=== PATIENT | male | born 1975 | race Hispanic/Latino ===

== ENCOUNTER 2021-11-01 02:03 | Inpatient (IN) | payer OTHER ==
[~2021-11-01] VITALS: Ht 162.6 cm; Wt 100.5 kg
[2021-11-01] MEDS ORDERED: KETOROLAC 30MG VIAL (30MG/ML) IVP ONE (04:00)
[2021-11-01 04:22] LABS: BASOPHILS % (AUTO) 0.2 % (0.0-5.0); HEMATOCRIT 44.6 % (42-54); LYMPHOCYTES % (AUTO) 7.7 % (21.0-51.0); MEAN CORPUSCULAR HEMOGLOBIN 30.8 pg (27.0-33.0); MEAN CORPUSCULAR HGB CONC 34.3 g/dL (32.0-36.0); MEAN CORPUSCULAR VOLUME 89.7 fL (79-99); MONOCYTES % (AUTO) 6.4 % (3.0-13.0); NEUTROPHILS % (AUTO) 85.2 % (40.0-77.0); PLATELET COUNT (AUTO) 252 K/uL (130-400); RED BLOOD CELL COUNT(AUTO) 4.97 MIL/uL (4.50-6.20); RED CELL DISTRIBUTION WIDTH 12.3 % (11.0-15.5); WHITE BLOOD COUNT (AUTO) 15.4 K/uL (4.8-10.8)
[2021-11-01 04:23] LABS: APPEARANCE,URINE CLEAR (CLEAR); BILIRUBIN,URINE SMALL (NEGATIVE); COLOR,URINE YELLOW (YELLOW); GLUCOSE, URINE (UA) NEGATIVE (NEGATIVE); KETONES,URINE >=80 mg/dL (NEGATIVE); LEUKOCYTE ESTERASE ,URINE NEGATIVE (NEGATIVE); NITRATE,URINE NEGATIVE (NEGATIVE); OCCULT BLOOD,URINE MODERATE (NEGATIVE); PH,URINE 5.5 (5.0-8.0); PROTEIN,URINE TRACE mg/dL (NEGATIVE)
[2021-11-01 04:34] LABS: POTASSIUM 3.7 mmol/L (3.5-5.1)
[2021-11-01 04:38] LABS: ALBUMIN 3.7 g/dL (3.5-5.0); TOTAL PROTEIN, SERUM 8.6 g/dL (6.0-8.3)
[2021-11-01 05:14] LABS: BACTERIA,URINE None Seen /HPF (None Seen); MUCUS,URINE Moderate LPF (None Seen); RBC,URINE None Seen /HPF (0-1); SQUAMOUS EPITHELIAL CELL,UR Few /HPF (0-2); WBC,URINE None Seen /HPF (0-1)
[2021-11-01] MEDS ORDERED: MORPHINE 4 MG SYG IVP ONE (06:00)
[2021-11-01] MEDS ORDERED: VANCOMYCIN KIT 1 GM/250 ML IV.KIT IV ONE (06:00)
[2021-11-01] MEDS ORDERED: ZOSYN 3.375GM +NS 50ML IV ONE (06:30)
[2021-11-01] MEDS ORDERED: ACETAMINOPHEN 325 MG TAB ONE (07:31)
[2021-11-01] MEDS: VANCOMYCIN 1.25 GM/250 ML BAG 250 ML IV SCH ×2 (07:57→20:56)
[2021-11-01] MEDS ORDERED: VANCOMYCIN PROTOCOL PER PHARMACY IV SCH (08:00)
[2021-11-01] MEDS ORDERED: ACETAMINOPHEN 325 MG TAB PO ONE (08:00)
[2021-11-01] MEDS ORDERED: 0.9%NACL 1000ML 1,000 ML IV ONE (08:00)
[2021-11-01 08:22] LABS: AMPHET/METH SCREEN,URINE NEGATIVE (NEGATIVE); BARBITURATE SCREEN, URINE NEGATIVE (NEGATIVE); BENZODIAZEPINES SCREEN,URINE NEGATIVE (NEGATIVE); CANNABINOID SCREEN,URINE NEGATIVE (NEGATIVE); COCAINE SCREEN,URINE NEGATIVE (NEGATIVE); PHENCYCLIDINE SCREEN,URINE NEGATIVE (NEGATIVE)
[2021-11-01 08:25] LABS: HEMOGLOBIN A1C 5.6 % (4.0-6.0)
[2021-11-01 10:00] VITALS: BP 110/51
[2021-11-01] MEDS: ZOSYN 3.375GM +NS 50ML IV SCH ×2 (14:01→23:14)
[2021-11-01 16:00] VITALS: BP 130/72
[2021-11-01 20:00] VITALS: BP 115/59
[2021-11-01] MEDS: KETOROLAC 15MG/ML VIAL (15MG/ML) IV PRN (21:01)
[2021-11-02] VITALS: BP 115/54
[2021-11-02 04:00] VITALS: BP 107/55
[2021-11-02 05:44] LABS: BASOPHILS % (AUTO) 0.2 % (0.0-5.0); EOSINOPHILS % (AUTO) 0.5 % (0.0-8.0); HEMATOCRIT 39.3 % (42-54); LYMPHOCYTES % (AUTO) 10.5 % (21.0-51.0); MEAN CORPUSCULAR HEMOGLOBIN 30.9 pg (27.0-33.0); MEAN CORPUSCULAR HGB CONC 33.6 g/dL (32.0-36.0); MONOCYTES % (AUTO) 8.5 % (3.0-13.0); NEUTROPHILS % (AUTO) 79.6 % (40.0-77.0); PLATELET COUNT (AUTO) 240 K/uL (130-400); RED BLOOD CELL COUNT(AUTO) 4.27 MIL/uL (4.50-6.20); RED CELL DISTRIBUTION WIDTH 12.7 % (11.0-15.5)
[2021-11-02 05:54] LABS: POTASSIUM 3.8 mmol/L (3.5-5.1)
[2021-11-02] MEDS: ZOSYN 3.375GM +NS 50ML IV SCH ×2 (06:48→13:46)
[2021-11-02 08:00] VITALS: BP 124/79
[2021-11-02] MEDS: VANCOMYCIN 1.25 GM/250 ML BAG 250 ML IV SCH ×2 (09:10→22:16)
[2021-11-02] MEDS: KETOROLAC 15MG/ML VIAL (15MG/ML) IV PRN ×2 (09:23→22:26)
[2021-11-02 12:00] VITALS: BP 116/69
[2021-11-02 16:00] VITALS: BP 110/55
[2021-11-02 20:00] VITALS: BP 119/58
[2021-11-03] VITALS: BP 116/60
[2021-11-03] MEDS: ZOSYN 3.375GM +NS 50ML IV SCH ×4 (00:06→20:53)
[2021-11-03 04:00] VITALS: BP 123/67
[2021-11-03 07:58] LABS: HEMATOCRIT 37.1 % (42-54); MEAN CORPUSCULAR HEMOGLOBIN 30.5 pg (27.0-33.0); MEAN CORPUSCULAR HGB CONC 33.4 g/dL (32.0-36.0); MEAN CORPUSCULAR VOLUME 91.4 fL (79-99); RED BLOOD CELL COUNT(AUTO) 4.06 MIL/uL (4.50-6.20); RED CELL DISTRIBUTION WIDTH 12.7 % (11.0-15.5); WHITE BLOOD COUNT (AUTO) 11.4 K/uL (4.8-10.8)
[2021-11-03 08:00] VITALS: BP 130/83
[2021-11-03 08:07] LABS: POTASSIUM 3.5 mmol/L (3.5-5.1)
[2021-11-03] MEDS ORDERED: VANCOMYCIN 2GM/500 ML BAG 500 ML IV SCH (08:30)
[2021-11-03 12:07] VITALS: BP 102/61
[2021-11-03 16:00] VITALS: BP 125/74
[2021-11-03 19:00] VITALS: BP 126/60
[2021-11-03] MEDS: KETOROLAC 15MG/ML VIAL (15MG/ML) IV PRN (20:53)
[2021-11-03] MEDS ORDERED: VANCOMYCIN 1.5 GM/250 ML BAG 250 ML IV SCH (21:00)
[2021-11-04] VITALS: BP 125/66
[2021-11-04 04:00] VITALS: BP 119/70
[2021-11-04 05:01] LABS: BASOPHILS % (AUTO) 0.3 % (0.0-5.0); HEMATOCRIT 39.2 % (42-54); LYMPHOCYTES % (AUTO) 17.8 % (21.0-51.0); MEAN CORPUSCULAR HEMOGLOBIN 30.3 pg (27.0-33.0); MEAN CORPUSCULAR HGB CONC 33.2 g/dL (32.0-36.0); MEAN CORPUSCULAR VOLUME 91.4 fL (79-99); NEUTROPHILS % (AUTO) 67.1 % (40.0-77.0); PLATELET COUNT (AUTO) 271 K/uL (130-400); RED BLOOD CELL COUNT(AUTO) 4.29 MIL/uL (4.50-6.20); RED CELL DISTRIBUTION WIDTH 12.6 % (11.0-15.5); WHITE BLOOD COUNT (AUTO) 11.6 K/uL (4.8-10.8)
[2021-11-04] MEDS: ZOSYN 3.375GM +NS 50ML IV SCH ×3 (05:03→21:53)
[2021-11-04 05:16] LABS: CREATININE 1.2 mg/dL (0.5-1.5); POTASSIUM 3.4 mmol/L (3.5-5.1)
[2021-11-04 08:02] VITALS: BP 114/60
[2021-11-04] MEDS ORDERED: VANCOMYCIN 1.5 GM/250 ML BAG 250 ML IV SCH (09:47)
[2021-11-04 11:06] VITALS: BP 118/59
[2021-11-04 16:47] VITALS: BP 118/56
[2021-11-04 19:00] VITALS: BP 119/68
[2021-11-04] MEDS: VANCOMYCIN 1.25 GM/250 ML BAG 250 ML IV SCH (19:49)
[2021-11-05] VITALS: BP 116/73
[2021-11-05 04:00] VITALS: BP 115/67
[2021-11-05 04:33] LABS: BASOPHILS % (AUTO) 0.4 % (0.0-5.0); EOSINOPHILS % (AUTO) 2.2 % (0.0-8.0); HEMATOCRIT 38.6 % (42-54); LYMPHOCYTES % (AUTO) 16.9 % (21.0-51.0); MEAN CORPUSCULAR HEMOGLOBIN 30.2 pg (27.0-33.0); MEAN CORPUSCULAR HGB CONC 33.2 g/dL (32.0-36.0); MONOCYTES % (AUTO) 10.3 % (3.0-13.0); NEUTROPHILS % (AUTO) 69.2 % (40.0-77.0); PLATELET COUNT (AUTO) 265 K/uL (130-400); RED BLOOD CELL COUNT(AUTO) 4.24 MIL/uL (4.50-6.20); RED CELL DISTRIBUTION WIDTH 12.8 % (11.0-15.5); WHITE BLOOD COUNT (AUTO) 10.4 K/uL (4.8-10.8)
[2021-11-05 04:48] LABS: CREATININE 2.2 mg/dL (0.5-1.5); POTASSIUM 3.8 mmol/L (3.5-5.1)
[2021-11-05] MEDS: ZOSYN 3.375GM +NS 50ML IV SCH (05:11)
[2021-11-05 08:00] VITALS: BP 113/89
[2021-11-05] MEDS ORDERED: HYDROCODONE/ACETAMINOPHEN 5/325 MG TAB PO PRN (09:00)
[2021-11-05] MEDS: VANCOMYCIN 1.25 GM/250 ML BAG 250 ML IV SCH (10:01)
[2021-11-05] MEDS: LACTATED RINGERS 1000ML IV SCH (10:01)
[2021-11-05 11:56] VITALS: BP 119/74
[2021-11-05] MEDS ORDERED: ZYVOX 600 MG TAB PO SCH (13:30)
[2021-11-05 16:00] VITALS: BP 130/75
[2021-11-05 19:00] VITALS: BP 135/72
[2021-11-05] MEDS: ZYVOX 600 MG TAB PO SCH (19:38)
[2021-11-05] MEDS ORDERED: DIPHENHYDRAMINE HCL 25 MG CAPSULE PO ONE (20:00)
[2021-11-06] VITALS: BP 125/62
[2021-11-06] MEDS ORDERED: LIDOCAINE HCL-MPF 1% 2ML VIAL IV STA (02:03)
[2021-11-06 04:00] VITALS: BP 140/75
[2021-11-06 04:53] LABS: BASOPHILS % (AUTO) 0.5 % (0.0-5.0); EOSINOPHILS % (AUTO) 2.1 % (0.0-8.0); HEMATOCRIT 39.1 % (42-54); LYMPHOCYTES % (AUTO) 16.8 % (21.0-51.0); MEAN CORPUSCULAR HGB CONC 33.5 g/dL (32.0-36.0); MEAN CORPUSCULAR VOLUME 92.4 fL (79-99); MONOCYTES % (AUTO) 9.8 % (3.0-13.0); NEUTROPHILS % (AUTO) 69.7 % (40.0-77.0); PLATELET COUNT (AUTO) 271 K/uL (130-400); RED BLOOD CELL COUNT(AUTO) 4.23 MIL/uL (4.50-6.20); RED CELL DISTRIBUTION WIDTH 12.8 % (11.0-15.5); WHITE BLOOD COUNT (AUTO) 10.3 K/uL (4.8-10.8)
[2021-11-06 05:16] LABS: CREATININE 2.5 mg/dL (0.5-1.5); POTASSIUM 3.7 mmol/L (3.5-5.1)
[2021-11-06 08:00] VITALS: BP 135/78
[2021-11-06] MEDS ORDERED: LIDOCAINE HCL MPF 1% 5ML VIAL ONE (09:15)
[2021-11-06] MEDS: LACTATED RINGERS 1000ML IV SCH (09:30)
[2021-11-06] MEDS: LACTATED RINGERS 1000ML 1,000 ML IV SCH ×3 (09:32→19:34)
[2021-11-06] MEDS: ZYVOX 600 MG TAB PO SCH ×2 (09:32→19:32)
[2021-11-06] MEDS ORDERED: ACET-2079 PO (09:47)
[2021-11-06 12:00] VITALS: BP 149/87
[2021-11-06 13:11] LABS: CREATININE 2.4 mg/dL (0.5-1.5); POTASSIUM 3.7 mmol/L (3.5-5.1)
[2021-11-06 16:00] VITALS: BP 128/75
[2021-11-06 19:00] VITALS: BP 129/74
[2021-11-07] VITALS: BP 126/65
[2021-11-07] MEDS: LACTATED RINGERS 1000ML 1,000 ML IV SCH (02:32)
[2021-11-07 04:00] VITALS: BP 126/67
[2021-11-07 05:31] LABS: BASOPHILS % (AUTO) 0.5 % (0.0-5.0); EOSINOPHILS % (AUTO) 2.3 % (0.0-8.0); HEMATOCRIT 38.7 % (42-54); MEAN CORPUSCULAR HEMOGLOBIN 30.2 pg (27.0-33.0); MEAN CORPUSCULAR HGB CONC 33.3 g/dL (32.0-36.0); MEAN CORPUSCULAR VOLUME 90.6 fL (79-99); MONOCYTES % (AUTO) 9.5 % (3.0-13.0); NEUTROPHILS % (AUTO) 70.8 % (40.0-77.0); PLATELET COUNT (AUTO) 291 K/uL (130-400); RED BLOOD CELL COUNT(AUTO) 4.27 MIL/uL (4.50-6.20); RED CELL DISTRIBUTION WIDTH 12.6 % (11.0-15.5); WHITE BLOOD COUNT (AUTO) 10.5 K/uL (4.8-10.8)
[2021-11-07 05:40] LABS: CREATININE 2.2 mg/dL (0.5-1.5)
[2021-11-07 08:00] VITALS: BP 148/63
[2021-11-07] MEDS: LACTATED RINGERS 1000ML IV SCH (09:30)
[2021-11-07] MEDS: ZYVOX 600 MG TAB PO SCH (09:52)
[2021-11-07] MEDS ORDERED: CLIN-116 PO (10:25)
[2021-11-07 11:51] VITALS: BP 106/62
[2021-11-07 16:00] VITALS: BP 153/99
== END 2021-11-07 17:20 | disposition home or self-care (01) | DRG 872 ==
LOC: EDH 02:03 → EDHIP 02:04 → 4BH 09:40
PROVIDERS: ADMIT Internal Medicine; ATTEND Internal Medicine
DX: A41.9 Sepsis, unspecified organism (principal); N17.9 Acute kidney failure, unspecified; N49.2 Inflammatory disorders of scrotum; E66.01 Morbid (severe) obesity due to excess calories; Z68.38 Body mass index [BMI] 38.0-38.9, adult; F32.A Depression, unspecified; F41.9 Anxiety disorder, unspecified
CPT/HCPCS: 36415; 72192; 76870; 76882; 80048; 80053; 80202; 80305; 81001; 83036; 83605; 84145; 85025; 85027; 86592; 86701; 87040; 87070; 87076; 87077; 87186; 87390; 87486; 87797; G0378; J1885; J2270; J2543; J3370; J3490; J7120; Q0163

== ENCOUNTER 2022-05-31 12:07 | Emergency (ER) | payer OTHER ==
[~2022-05-31] VITALS: Ht 167.6 cm; Wt 99.8 kg
[~2022-05-31 12:07] MED LIST: ACET-2079 PO; CLIN-116 PO
[2022-05-31] MEDS ORDERED: SOLU-MEDROL 125MG VIAL ONE (12:26)
[2022-05-31] MEDS ORDERED: 0.9%NACL 1000ML 1,000 ML IV ONE (12:30)
[2022-05-31] MEDS ORDERED: SOLU-MEDROL 125MG VIAL IVP ONE (12:30)
[2022-05-31] MEDS ORDERED: FAMOTIDINE 20MG VIAL IV ONE (12:30)
[2022-05-31 12:37] LABS: BASOPHILS % (AUTO) 0.1 % (0.0-5.0); EOSINOPHILS % (AUTO) 1.8 % (0.0-8.0); HEMATOCRIT 41.7 % (42-54); LYMPHOCYTES % (AUTO) 29.2 % (21.0-51.0); MEAN CORPUSCULAR HEMOGLOBIN 30.4 pg (27.0-33.0); MEAN CORPUSCULAR HGB CONC 33.6 g/dL (32.0-36.0); MEAN CORPUSCULAR VOLUME 90.7 fL (79-99); MONOCYTES % (AUTO) 2.6 % (3.0-13.0); PLATELET COUNT (AUTO) 210 K/uL (130-400); RED CELL DISTRIBUTION WIDTH 12.7 % (11.0-15.5); WHITE BLOOD COUNT (AUTO) 7.4 K/uL (4.8-10.8)
[2022-05-31 13:04] LABS: ALBUMIN 3.5 g/dL (3.5-5.0); CREATININE 1.4 mg/dL (0.5-1.5); POTASSIUM 3.4 mmol/L (3.5-5.1); TOTAL PROTEIN, SERUM 7.3 g/dL (6.0-8.3)
[2022-05-31] MEDS ORDERED: 0.9% NACL 500ML IV.SOLN 500 ML IV ONE ×2 (14:00→14:30)
[2022-05-31 14:38] LABS: APPEARANCE,URINE CLEAR (CLEAR); BILIRUBIN,URINE NEGATIVE (NEGATIVE); COLOR,URINE LIGHT-YELLOW (YELLOW); GLUCOSE, URINE (UA) NEGATIVE (NEGATIVE); KETONES,URINE NEGATIVE (NEGATIVE); LEUKOCYTE ESTERASE ,URINE NEGATIVE Leu/uL (NEGATIVE); NITRATE,URINE NEGATIVE (NEGATIVE); PH,URINE 5.5 (5.0-8.0); PROTEIN,URINE 30 mg/dL (NEGATIVE); UROBILINOGEN,URINE 0.2 mg/dL (0.2-1.0)
[2022-05-31 14:48] LABS: BACTERIA,URINE RARE /HPF (None Seen); MUCUS,URINE FEW LPF (None Seen); SQUAMOUS EPITHELIAL CELL,UR RARE /HPF (0-2); YEAST,URINE BUDDING FEW /HPF (None Seen)
[2022-05-31 15:37] VITALS: BP 101/75
[2022-05-31] MEDS ORDERED: PRED20TA3 PO (15:39)
[2022-05-31] MEDS ORDERED: DIPH-1242 PO (15:39)
== END 2022-05-31 15:57 | disposition home or self-care (01) ==
LOC: EDH 12:07
DX: T63.441A Toxic effect of venom of bees, accidental (unintentional), initial encounter (principal); R00.0 Tachycardia, unspecified; Z79.899 Other long term (current) drug therapy; Y92.89 Other specified places as the place of occurrence of the external cause
CPT/HCPCS: 99285; 96374; 96361; 96375; 82550; 84484; 80053; 85025; 81001; 36415; 93005; J7040; J3490; J7030; J2930

== ENCOUNTER 2023-09-04 07:22 | Emergency (ER) | payer OTHER ==
[~2023-09-04] VITALS: Ht 162.6 cm; Wt 99.8 kg
[~2023-09-04 07:22] MED LIST changes: +DIPH-1242 PO; +PRED20TA3 PO
[2023-09-04 07:23] VITALS: BP 139/83; PULSE 96; RESP 18
[2023-09-04] MEDS: LIDOCAINE 1%-EPI 1:100,000 20 ML VIAL ONE (09:09)
== END 2023-09-04 11:17 | disposition home or self-care (01) ==
LOC: EDH 07:22
DX: K64.5 Perianal venous thrombosis (principal); Z79.899 Other long term (current) drug therapy
CPT/HCPCS: 99284; 46083; J3490